=== PATIENT | male | born 1965 | race African-American/Black ===

== ENCOUNTER 2024-05-25 21:51 | Emergency (ER) | payer SELFPAY ==
[~2024-05-25] VITALS: Ht 165.1 cm; Wt 96.9 kg
[2024-05-25 22:35] VITALS: O2SAT 100
[2024-05-26] VITALS: BP 158/89; PULSE 77; RESP 16; TEMP 36.89184; O2SAT 100
[2024-05-26 00:15] LABS: BASOPHILS % 0.2 % (0.0-2.0); EOSINOPHILS % 4.5 % (0.0-5.0); HEMATOCRIT. 45.2 % (42.0-52.0); HEMOGLOBIN. 15.1 g/dL (14.0-18.0); MEAN CORPUSCULAR HEMOGLOBIN 30.2 pg (28.0-32.0); MEAN CORPUSCULAR HGB CONC 33.4 g/dL (31.0-37.0); MEAN CORPUSCULAR VOLUME 90.5 fL (80.0-94.0); MEAN PLATELET VOLUME 9.8 fl (7.4-10.4); MONOCYTES % 8.3 % (2.0-8.0); PLATELET 163 x1000/uL (130-400); RED BLOOD CELL COUNT 4.99 mill/uL (4.7-6.1); WHITE BLOOD COUNT 5.4 x1000/uL (4.5-11.0)
[2024-05-26 00:21] LABS: CHLORIDE 107 mEq/L (98-107); POTASSIUM 4.9 mEq/L (3.5-5.1); SODIUM 140 mEq/L (136-145)
[2024-05-26 00:22] LABS: CALCIUM 9.7 mg/dL (8.7-10.4); CARBON DIOXIDE 28 mEq/L (21-32)
[2024-05-26 00:27] LABS: CREATININE 1.4 mg/dL (0.6-1.3); GLUCOSE 116 mg/dL (70-105)
[2024-05-26 00:28] LABS: UREA NITROGEN BLOOD 13 mg/dL (9-23)
[2024-05-26 00:29] LABS: ALANINE AMINOTRANSFERASE 18 IU/L (10-49); ALBUMIN 4.3 g/dL (3.2-4.8); ASPARTATE AMINOTRANSFERASE 23 IU/L (<34)
[2024-05-26 00:30] LABS: BILIRUBIN DIRECT 0.2 mg/dL (<=3.0); BILIRUBIN TOTAL 0.6 mg/dL (0.1-1.0); PROTEIN TOTAL 6.9 g/dL (6.0-8.3)
== END 2024-05-26 00:05 | disposition home or self-care (01) ==
LOC: ER 21:51
DX: T55.1X1A Toxic effect of detergents, accidental (unintentional), initial encounter (principal); E11.9 Type 2 diabetes mellitus without complications; I10 Essential (primary) hypertension; X58.XXXA Exposure to other specified factors, initial encounter
CPT/HCPCS: 36415; 80048; 80076; 85025; 99283